=== PATIENT | female | born 1995 | race Two or more races ===

== ENCOUNTER 2019-02-21 21:57 | Emergency (ER) | payer OTHER ==
[2019-02-22 00:43] LABS: Rapid Strep Molecular Negative (Negative)
--- NOTE | 2019-02-22 01:10 | ED ---
HPI Chest Pain - HPI Summary HPI Summary: 23-year-old female presents with chest pain today. States that has had sore throat and sinus congestion. has had a cough. States that it feels like tightness around her heart. Doesn't change with positional changes. Denies any shortness of breath. No recent travel. Is not on control. No nausea vomiting. No abdominal pain. Never had this before. No medical conditions. No family history of cardiac disease. Doesn't smoke. - History of Current Complaint Chief Complaint: EDChestPainROMI Time Seen by Provider: 02/22/19 00:40 Pain Intensity: 3 - Allergy/Home Medications Allergies/Adverse Reactions: Allergies Allergy/AdvReac Type Severity Reaction Status Date / Time No Known Allergies Allergy Verified 02/21/19 22:07 Home Medications: Home Medications NK [No Home Medications Reported] 02/22/19 [History Confirmed 02/22/19] PMH/Surg Hx/FS Hx/Imm Hx Endocrine/Hematology History: Denies: Hx Anticoagulant Therapy Respiratory History: Denies: Hx Asthma Infectious Disease History: No Infectious Disease History: Denies: Traveled Outside the [place] in Last 30 Days - Family History Known Family History: Negative: Cardiac Disease - Social History Alcohol Use: None Substance Use Type: Reports: None Smoking Status (MU): Never Smoked Tobacco Review of Systems Negative: Fever Positive: Sore Throat Positive: Chest Pain Positive: Cough. Negative: Shortness Of Breath All Other Systems Reviewed And Are Negative: Yes Physical Exam Triage Information Reviewed: Yes Vital Signs On Initial Exam: Initial Vitals Temp Pulse Resp BP Pulse Ox 98 F 84 16 113/84 100 02/21/19 22:05 02/21/19 22:05 02/21/19 22:05 02/21/19 22:05 02/21/19 22:05 Vital Signs Reviewed: Yes Appearance: Positive: Well-Appearing Skin: Positive: Warm, Dry Head/Face: Positive: Normal Head/Face Inspection Eyes: Positive: Normal, EOMI, GARY, Conjunctiva Clear ENT: Positive: Normal ENT inspection, Pharyngeal erythema, TMs normal, Uvula midline, Other - soft palate symmetric. Negative: Tonsillar swelling, Tonsillar exudate, Trismus, Muffled voice Respiratory/Lung Sounds: Positive: Clear to Auscultation, Breath Sounds Present , Other - nonreproducible chest pain Cardiovascular: Positive: Normal, RRR Abdomen Description: Positive: Nontender, Soft Bowel Sounds: Positive: Present Musculoskeletal: Positive: Normal Neurological: Positive: Normal Psychiatric: Positive: Normal Diagnostics - Vital Signs Vital Signs Temp Pulse Resp BP Pulse Ox 02/22/19 00:28 73 132/80 98 02/22/19 00:13 99.4 F 79 16 118/78 98 02/21/19 22:05 98 F 84 16 113/84 100 - Laboratory Lab Results: Lab Results 02/22/19 Range/Units 00:16 Group A Strep Rapid Negative (Negative) Result Diagrams: 02/22/19 01:15 02/22/19 01:15 Lab Statement: Any lab studies that have been ordered have been reviewed, and results considered in the medical decision making process. - Radiology chest Radiology Interpretation Completed By: ED Physician Summary of Radiographic Findings: no pneumonia - EKG No standard instances Cardiac Rate: NL EKG Rhythm: Sinus Rhythm Summary of EKG Findings: sinus rhythm Chest Pain Course/Dx - Course Course Of Treatment: 23-year-old female presents with chest pain today. States that has had sore throat and sinus congestion. has had a cough. States that it feels like tightness around her heart. Doesn't change with positional changes. Denies any shortness of breath. No recent travel. Is not on control. No nausea vomiting. No abdominal pain. Never had this before. No medical conditions. No family history of cardiac disease. Doesn't smoke. On exam lungs clear auscultation. EKG shows sinus rhythm. Pharynx erythematous. Strep negative. chest xray normal. wbc normal. crp normal. troponin zero. no risk factors for PE. symptoms likely due to upper resp symptoms. told take tyenlol or ibuprofen for pain. patient understand and agrees with plan. - Chest Pain Differential Diagnosis/HQI/PQRI: Chest Wall, Lower Respiratory Infection, Other : - pericarditis - Diagnoses Provider Diagnoses: Pharyngitis, Atypical chest pain Discharge ED - Sign-Out/Discharge Documenting (check all that apply): Patient Departure Patient Received Moderate/Deep Sedation with Procedure: No - Discharge Plan Condition: Good Disposition: HOME Patient Education Materials: Pharyngitis (ED) Referrals: [facility] - Rafita MARRERO [Primary Care Provider] - Additional Instructions: Take Tylenol or ibuprofen for pain every 6 hours [facility] Return to ED if develop any new or worsening symptoms - Billing Disposition and Condition Condition: GOOD Disposition: Home
[2019-02-22 01:27] LABS: ABS Basophils 0.1 10^3/ul (0-0.2); ABS Eosinophils 0.1 10^3/ul (0-0.6); ABS Lymphocytes 3.1 10^3/ul (1.0-4.8); ABS Monocytes 0.7 10^3/ul (0-0.8); ABS Neutrophils 4.1 10^3/ul (1.5-7.7); Eosinophil % 1.7 %; Hematocrit 42 % (35-47); Hemoglobin 14.3 g/dL (12.0-16.0); Lymphocyte % 38.6 %; Mean Corpuscular HGB Conc 34 g/dL (31-36); Mean Corpuscular Hemoglobin 33 pg (27-31); Mean Corpuscular Volume 98 fL (80-97); Mean Platelet Volume 9.5 fL (7.4-10.4); Nucleated Red Blood Cells % 0.1; Platelet Count 231 10^3/uL (150-450); Red Blood Count 4.32 10^6 /uL (3.70-4.87); Red Cell Distribution Width 13 % (10-15); White Blood Count 8.1 10^3/uL (3.5-10.8)
[2019-02-22 01:40] LABS: ALT 9 U/L (7-52); AST 15 U/L (13-39); Albumin 4.7 g/dL (3.2-5.2); Albumin/Globulin Ratio 1.7 (1-3); Alkaline Phosphatase 66 U/L (34-104); Anion Gap 7 mmol/L (2-11); BUN/Creatinine Ratio 18.9 (8-20); Blood Urea Nitrogen 14 mg/dL (6-24); C Reactive Protein < 1.00 mg/L (<8.01); CO2 Carbon Dioxide 27 mmol/L (22-32); Calcium 9.6 mg/dL (8.6-10.3); Chloride 104 mmol/L (101-111); EGFR African American 117.7 (>60); EGFR Non-African American 97.3 (>60); Globulin 2.8 g/dL (2-4); Glucose 90 mg/dL (70-100); Sodium 138 mmol/L (135-145); Total Protein 7.5 g/dL (6.4-8.9)
[2019-02-22 02:01] VITALS: BP 102/77
== END 2019-02-22 02:01 | disposition home or self-care (01) ==
LOC: ED 21:57
DX: R07.89 Other chest pain (principal); J02.9 Acute pharyngitis, unspecified
CPT/HCPCS: 36415; 71046; 80053; 83605; 84484; 85025; 86140; 86308; 87651; 93005; 99283

== ENCOUNTER 2020-08-09 16:40 | Inpatient (IN) ==
[2020-08-09 17:27] LABS: ABS Basophils 0.1 10^3/ul (0-0.2); ABS Eosinophils 0.1 10^3/ul (0-0.6); ABS Lymphocytes 1.9 10^3/ul (1.0-4.8); ABS Monocytes 0.5 10^3/ul (0-0.8); ABS Neutrophils 5.6 10^3/ul (1.5-7.7); Eosinophil % 1.3 %; Hematocrit 46 % (35-47); Hemoglobin 15.4 g/dL (12.0-16.0); Lymphocyte % 23.4 %; Mean Corpuscular HGB Conc 33 g/dL (31-36); Mean Corpuscular Hemoglobin 33 pg (27-31); Mean Corpuscular Volume 101 fL (80-97); Mean Platelet Volume 9.7 fL (7.4-10.4); Nucleated Red Blood Cells % 0.1; Platelet Count 263 10^3/uL (150-450); Red Blood Count 4.59 10^6 /uL (3.70-4.87); Red Cell Distribution Width 13 % (10-15); Urine Appearance Clear; Urine Bilirubin Negative (Negative); Urine Blood Negative (Negative); Urine Color Yellow; Urine Glucose Negative (Negative); Urine Ketones 2+ (Negative); Urine Nitrite Negative (Negative); Urine Protein Negative (Negative); Urine Specific Gravity 1.017 (1.010-1.030); Urine Urobilinogen Negative (Negative); White Blood Count 8.2 10^3/uL (3.5-10.8)
[2020-08-09 17:43] LABS: ALT 8 U/L (7-52); AST 14 U/L (13-39); Albumin 4.8 g/dL (3.2-5.2); Albumin/Globulin Ratio 1.5 (1-3); Alkaline Phosphatase 51 U/L (34-104); Anion Gap 11 mmol/L (2-11); BUN/Creatinine Ratio 20.5 (8-20); Blood Urea Nitrogen 16 mg/dL (6-24); CO2 Carbon Dioxide 20 mmol/L (22-32); Calcium 9.7 mg/dL (8.6-10.3); Chloride 104 mmol/L (101-111); EGFR African American 108.9 (>60); Globulin 3.1 g/dL (2-4); Glucose 85 mg/dL (70-100); Potassium 3.8 mmol/L (3.5-5.0); Sodium 135 mmol/L (135-145); Total Protein 7.9 g/dL (6.4-8.9); Urine Benzodiazepine Screen None Detected (None Detect); Urine Cannabinoids Screen None Detected (None Detect); Urine Opiates Screen None Detected (None Detect)
[2020-08-09 17:49] LABS: HCG Pregnancy < 0.60 mIU/mL
[2020-08-09 17:59] LABS: Acetaminophen < 15 mcg/mL; Alcohol, S < 10 mg/dL (<10); Salicylate < 2.50 mg/dL (<30)
[2020-08-09 18:15] LABS: TSH Ultra Thyroid Stim Horm 0.59 mcIU/mL (0.34-5.60)
[2020-08-10] MEDS ORDERED: Al Hydrox/Mg Hydrox/Simet LIQ 30 ML UDC PO PRN (00:11)
[2020-08-10] MEDS: Vitamin THERAPEUTIC TAB PO SCH (12:36)
[2020-08-11 08:40] LABS: HDL Cholesterol 72.8 mg/dL
[2020-08-11] MEDS: Vitamin THERAPEUTIC TAB PO SCH (11:40)
[2020-08-12] MEDS: Vitamin THERAPEUTIC TAB PO SCH (10:26)
[2020-08-12] MEDS: OLANzapine 5 mg TAB*ODT PO SCH (10:27)
[2020-08-13] MEDS: Vitamin THERAPEUTIC TAB PO SCH (10:44)
[2020-08-13] MEDS: OLANzapine 5 mg TAB*ODT PO SCH ×2 (10:44→12:25)
[2020-08-14] MEDS: Vitamin THERAPEUTIC TAB PO SCH (09:17)
[2020-08-14] MEDS: OLANzapine 5 mg TAB*ODT PO SCH (09:17)
[2020-08-15] MEDS: Vitamin THERAPEUTIC TAB PO SCH (08:47)
[2020-08-15] MEDS: OLANzapine 5 mg TAB*ODT PO SCH (08:48)
[2020-08-16] MEDS: Vitamin THERAPEUTIC TAB PO SCH (08:59)
[2020-08-16] MEDS: OLANzapine 5 mg TAB*ODT PO SCH (08:59)
[2020-08-17] MEDS: OLANzapine 5 mg TAB*ODT PO SCH (09:26)
[2020-08-17] MEDS: Vitamin THERAPEUTIC TAB PO SCH (09:26)
[2020-08-17 12:43] LABS: ABS Basophils 0.1 10^3/ul (0-0.2); ABS Eosinophils 0.2 10^3/ul (0-0.6); ABS Lymphocytes 2.5 10^3/ul (1.0-4.8); ABS Monocytes 0.4 10^3/ul (0-0.8); ABS Neutrophils 4.3 10^3/ul (1.5-7.7); Eosinophil % 3.3 %; Hematocrit 44 % (35-47); Hemoglobin 14.9 g/dL (12.0-16.0); Lymphocyte % 32.9 %; Mean Corpuscular HGB Conc 34 g/dL (31-36); Mean Corpuscular Hemoglobin 34 pg (27-31); Mean Corpuscular Volume 99 fL (80-97); Mean Platelet Volume 9.7 fL (7.4-10.4); Nucleated Red Blood Cells % 0.1; Platelet Count 237 10^3/uL (150-450); Red Cell Distribution Width 13 % (10-15); White Blood Count 7.5 10^3/uL (3.5-10.8)
[2020-08-18 08:39] VITALS: BP 100/64
[2020-08-18] MEDS: Vitamin THERAPEUTIC TAB PO SCH (10:35)
[2020-08-18] MEDS: OLANzapine 5 mg TAB*ODT PO SCH (10:35)
== END 2020-08-18 14:53 | disposition home or self-care (01) | DRG 885 ==
LOC: ED 16:40 → BSU 22:44
PROVIDERS: ADMIT Psychiatry & Neurology Psychiatry; ATTEND Psychiatry & Neurology Psychiatry